=== PATIENT | female | born 1955 | race Hispanic/Latino ===

== ENCOUNTER 2017-07-29 17:45 | Inpatient (IN) | payer SELFPAY ==
[~2017-07-29] VITALS: Ht 149.9 cm; Wt 54.0 kg
[2017-07-29] MEDS ORDERED: KETOROLAC TROMETHAMINE 30MG/ML ONE (18:06)
[2017-07-29] MEDS ORDERED: ONDANSETRON HCL 4 MG/2 ML VIAL ONE (18:06)
[2017-07-29] MEDS ORDERED: SODIUM CHLORIDE 0.9% 1000ML 1,000 ML IV ONE (18:07)
[2017-07-29 18:23] LABS: HEMATOCRIT 42.5 % (36-48); MEAN CORPUSCULAR HGB CONC 34.7 g/dL (32.0-36.0); MEAN CORPUSCULAR VOLUME 89.3 fL (79-99); PLATELET COUNT (AUTO) 278 K/uL (130-400); RED BLOOD CELL COUNT(AUTO) 4.76 MIL/uL (4.00-5.50); RED CELL DISTRIBUTION WIDTH 13.3 % (11.0-15.5); WHITE BLOOD COUNT (AUTO) 11.8 K/uL (4.8-10.8)
[2017-07-29 18:31] LABS: CREATININE 0.5 mg/dL (0.5-1.5); INR 0.95 (0.85-1.15); PARTIAL THROMBOPLASTIN TIME 23.9 SEC (26.3-35.5); POTASSIUM 4.2 mmol/L (3.5-5.1)
[2017-07-29 18:40] LABS: ALBUMIN 3.9 g/dL (3.5-5.0); BILIRUBIN,TOTAL 1.6 mg/dL (0.2-1.0); TOTAL PROTEIN, SERUM 8.2 g/dL (6.0-8.3)
[2017-07-29 18:40] LABS: APPEARANCE,URINE Clear (CLEAR); BILIRUBIN,URINE Small (NEGATIVE); COLOR,URINE Dark Yellow (YELLOW); GLUCOSE, URINE (UA) Negative (NEGATIVE); KETONES,URINE 40 mg/dL (NEGATIVE); LEUKOCYTE ESTERASE ,URINE Negative (NEGATIVE); NITRATE,URINE Negative (NEGATIVE); OCCULT BLOOD,URINE Small (NEGATIVE); PROTEIN,URINE Negative (NEGATIVE)
[2017-07-29 19:00] LABS: BACTERIA,URINE Few /HPF (None Seen); MUCUS,URINE Few LPF (None Seen); RBC,URINE 0-1 /HPF (0-1); WBC,URINE 0-1 /HPF (0-1)
[2017-07-29] MEDS ORDERED: MORPHINE SULFATE 4 MG/1ML SYG ONE (19:12)
[2017-07-29] MEDS ORDERED: IOPAMIDOL-370 75 ML VIAL IV ONE (19:54)
[2017-07-29 20:03] LABS: BAND NEUTROPHILS % (MANUAL) 17 % (0-2); LYMPHOCYTES % (MANUAL) 2 % (22-44); MAN.DIFF COMMENT-IMPRESSION MANUAL DIFFERENTIAL; MONOCYTES % (MANUAL) 6 % (2-9); SEGMENTED NEUTROPHILS % 75 % (40-70)
[2017-07-29 20:04] LABS: PLATELET MORPHOLOGY COMMENT ADEQUATE
[2017-07-29] MEDS ORDERED: ONDANSETRON HCL 4 MG/2 ML VIAL IVP PRN (22:00)
[2017-07-29] MEDS ORDERED: MORPHINE SULFATE 2 MG/ML 1ML SYG IVP PRN (22:00)
[2017-07-29] MEDS ORDERED: MEROPENEM 1 GM VIAL ONE (22:13)
[2017-07-29 22:28] VITALS: BP 133/74
[2017-07-29] MEDS: SODIUM CHLORIDE 0.9% 1000ML 1,000 ML IV SCH (22:56)
[2017-07-30] VITALS (20 sets, daily range): BP systolic 102–148; BP diastolic 54–75
[2017-07-30] MEDS ORDERED: HYDRALAZINE HCL 20 MG/ML VIAL IV PRN (03:45)
[2017-07-30] MEDS: SODIUM CHLORIDE 0.9% 1000ML 1,000 ML IV SCH ×2 (07:45→17:38)
[2017-07-30] MEDS ORDERED: GADOBENATE DIMEGLUMINE 10 ML IV ONE (08:11)
[2017-07-30] MEDS ORDERED: IBUP-1673 PO (08:17)
[2017-07-30] MEDS ORDERED: CEFTRIAXONE SODIUM 1 GM IVP SCH (09:00)
[2017-07-30] MEDS ORDERED: CEFTRIAXONE 2GM+NS 100ML 100 ML IV SCH (09:00)
[2017-07-30] MEDS: CEFTRIAXONE SODIUM 2 GM VIAL IVP SCH ×2 (09:21→22:27)
[2017-07-30] MEDS: FAMOTIDINE/PF 20 MG/2 ML VIAL IV SCH ×2 (09:21→22:27)
[2017-07-30] MEDS ORDERED: ISOVUE-370 50ML VIAL IV ONE (10:52)
[2017-07-30] MEDS ORDERED: LIDOCAINE HCL 2% 20ML ONE (11:04)
[2017-07-30] MEDS ORDERED: MIDAZOLAM HCL 1 MG/ML 2ML VIAL ONE (11:04)
[2017-07-30] MEDS ORDERED: FENTANYL CITRATE PF 50 MCG/1 ML 2ML VIAL ONE (11:04)
[2017-07-30] MEDS ORDERED: PROPOFOL 10 MG/ML 20ML VIAL IV ONE (11:04)
[2017-07-30] MEDS ORDERED: CEFAZOLIN SODIUM 1 GM VIAL ONE (11:24)
[2017-07-30] MEDS ORDERED: INDOMETHACIN 50 MG SUPP.RECT RC SCH (11:30)
[2017-07-30] MEDS: LEVOFLOXACIN 500 MG TABLET PO SCH (13:36)
[2017-07-30] MEDS ORDERED: CIPROFLOXACIN HCL 500 MG TABLET PO SCH (21:00)
[2017-07-30] MEDS: ACETAMINOPHEN 325 MG TAB PO PRN (22:47)
[2017-07-31] VITALS: BP 114/58
[2017-07-31 04:00] VITALS: BP 101/67
[2017-07-31 05:02] LABS: HEMATOCRIT 36.8 % (36-48); MEAN CORPUSCULAR HGB CONC 34.8 g/dL (32.0-36.0); MEAN CORPUSCULAR VOLUME 89.1 fL (79-99); NUCLEATED RED BLOOD CELLS 0.1 % (0.0-0.19); PLATELET COUNT (AUTO) 215 K/uL (130-400); RED BLOOD CELL COUNT(AUTO) 4.13 MIL/uL (4.00-5.50); RED CELL DISTRIBUTION WIDTH 13.1 % (11.0-15.5); WHITE BLOOD COUNT (AUTO) 8.1 K/uL (4.8-10.8)
[2017-07-31 05:40] LABS: ALBUMIN 2.5 g/dL (3.5-5.0); BILIRUBIN,DIRECT 1.8 mg/dL (0.0-0.3); BILIRUBIN,TOTAL 2.6 mg/dL (0.2-1.0); CREATININE 0.6 mg/dL (0.5-1.5); MAGNESIUM 1.9 mg/dL (1.80-2.40); POTASSIUM 3.4 mmol/L (3.5-5.1); TOTAL PROTEIN, SERUM 6.7 g/dL (6.0-8.3)
[2017-07-31 07:53] VITALS: BP 118/56
[2017-07-31] MEDS: SODIUM CHLORIDE 0.9% 1000ML 1,000 ML IV SCH (08:18)
[2017-07-31] MEDS: CEFTRIAXONE SODIUM 2 GM VIAL IVP SCH (09:00)
[2017-07-31] MEDS: LEVOFLOXACIN 500 MG TABLET PO SCH (09:34)
[2017-07-31] MEDS: FAMOTIDINE/PF 20 MG/2 ML VIAL IV SCH ×2 (09:34→21:44)
[2017-07-31] MEDS: ACETAMINOPHEN 325 MG TAB PO PRN (09:37)
[2017-07-31 11:19] VITALS: BP 123/70
[2017-07-31] MEDS ORDERED: POTASSIUM CHLORIDE 20MEQ/100ML 100 ML IV PRN (14:30)
[2017-07-31] MEDS ORDERED: LIDOCAINE HCL-MPF 1% 2ML VIAL IVP PRN (14:30)
[2017-07-31] MEDS ORDERED: POTASSIUM CHLORIDE 10% ELIXIR 20 MEQ/15 ML UDCUP PO PRN (14:30)
[2017-07-31 16:17] VITALS: BP 128/70
[2017-07-31] MEDS: POTASSIUM CHLORIDE 20 MEQ ERTAB PO PRN ×2 (16:40→16:41)
[2017-07-31 20:00] VITALS: BP 130/59
[2017-07-31] MEDS: ACETAMINOPHEN-CODEINE 300/30MG TAB PO PRN (21:44)
[2017-08-01] VITALS: BP 129/76
[2017-08-01 04:00] VITALS: BP 134/75
[2017-08-01 05:31] LABS: ALBUMIN 2.8 g/dL (3.5-5.0); BILIRUBIN,DIRECT 0.4 mg/dL (0.0-0.3); BILIRUBIN,TOTAL 0.8 mg/dL (0.2-1.0); POTASSIUM 3.8 mmol/L (3.5-5.1); TOTAL PROTEIN, SERUM 7.2 g/dL (6.0-8.3)
[2017-08-01 08:00] VITALS: BP 130/65
[2017-08-01] MEDS: LEVOFLOXACIN 500 MG TABLET PO SCH (09:52)
[2017-08-01] MEDS: FAMOTIDINE/PF 20 MG/2 ML VIAL IV SCH (09:52)
[2017-08-01 12:00] VITALS: BP 121/87
[2017-08-01] MEDS: ACETAMINOPHEN-CODEINE 300/30MG TAB PO PRN (12:17)
[2017-08-01] MEDS: POTASSIUM CHLORIDE 20 MEQ ERTAB PO PRN ×2 (14:43→17:58)
[2017-08-01 16:00] VITALS: BP 128/62
[2017-08-01] MEDS ORDERED: CEPH500T PO (16:58)
== END 2017-08-01 18:30 | disposition home or self-care (01) | DRG 445 ==
LOC: EDH 17:45 → EDHIP 17:46 → 4CH 21:43
PROVIDERS: ADMIT Family Medicine; ATTEND Family Medicine
PROC: 0FC98ZZ Extirpation of Matter from Common Bile Duct, Via Natural or Artificial Opening Endoscopic (ICD-10-PCS; principal; 2017-07-30)
PROC: 0F798ZZ Dilation of Common Bile Duct, Via Natural or Artificial Opening Endoscopic (ICD-10-PCS; 2017-07-30)
DX: K80.50 Calculus of bile duct without cholangitis or cholecystitis without obstruction (principal); R78.81 Bacteremia; K76.0 Fatty (change of) liver, not elsewhere classified; B96.89 Other specified bacterial agents as the cause of diseases classified elsewhere; K52.9 Noninfective gastroenteritis and colitis, unspecified
CPT/HCPCS: 36415; 74177; 74330; 76705; 80048; 80053; 80076; 81001; 82150; 83690; 83735; 84132; 85025; 85027; 85610; 85730; 87040; 87088; 87186; 87804; A4218; A9577; C1769; C1773; J0690; J0696; J1885; J2185; J2250; J2270; J2405; J2704; J3010; J3490; J7030; Q9967